=== PATIENT | male | born 1965 | race Caucasian/White ===

== ENCOUNTER 2019-09-26 09:55 | Emergency (ER) | payer MEDICAID ==
[~2019-09-26] VITALS: Ht 160 cm; Wt 50.8 kg
[2019-09-26 09:57] VITALS: BP 119/90
--- NOTE | 2019-09-26 10:26 | NUR ---
PET STYLIST: PT TO ROOM FROM LOBBY
== END 2019-09-26 10:48 | disposition home or self-care (01) ==
LOC: ED 10:41
DX: T65.811A Toxic effect of latex, accidental (unintentional), initial encounter (principal); Y92.89 Other specified places as the place of occurrence of the external cause; R21 Rash and other nonspecific skin eruption
CPT/HCPCS: 99283